=== PATIENT | female | born 1980 | race Caucasian/White ===

== ENCOUNTER 2016-12-30 13:51 | Emergency (ER) | payer OTHER ==
[~2016-12-30] VITALS: Ht 172.7 cm; Wt 97.5 kg
--- NOTE | 2016-12-30 15:05 | ED PSYCHIATRIC COMPLAINT ---
History of Present Illness General Chief Complaint: ETOH/Drug Related Complaint Stated Complaint: REQUESTING DETOX Source: patient, family (MOTHER), old records Exam Limitations: no limitations Vital Signs & Intake/Output Vital Signs & Intake/Output Vital Signs Date Time Temp Pulse Resp B/P B/P Pulse O2 O2 Flow FiO2 Mean Ox Delivery Rate 12/30 1647 70 18 121/67 98 Room Air 12/30 1410 96.4 72 18 119/75 99 Room Air Allergies Coded Allergies: cefuroxime (From CEFTIN) (Intermediate, RASH 12/30/16) Reconcile Medications Clonidine HCl (Kapvay) 0.1 MG TAB.ER.12H 1 TAB PO TID PRN DETOX Ondansetron (Zofran Odt) 4 MG TAB.RAPDIS 1 TAB SL TID PRN NAUSEA Triage Note: 36 Y/O FEMALE COME IN FOR DETOX OF VICODIN AND VALIUM. PT STS SHE HAD MADE PLANS TO GO TO A DETOX CENTER IN [facility] AND WHEN SHE GOT THERE SHE WAS INFORMED DURING TRIAGE THAT SHE WILL NEED A MEDICAL DETOX. PT STS HAS DETOX IN PAST ABOUT 10-15 YRS AGO. LAST DOSE OF VICODIN AND VALIUM WAS THIS MORNING. VICODIN 6 TABS OF 7.5 AND 80-100 MG OF THE VALIUM. PT STS SHE USUALLY TAKES A TOTAL OF UPTO 15--25 TABS OF THE VICODIN AND 80-100 MG OF THE VALIUM A DAY. PT DENIES SI/HI AT PRESENT AND STS SHE HAS A ORTIZ, NAUSEA AND SWEATY AT PRESENT. PT STS SHE ALSO DOES TAKE KLONOPIN 2MG TAB AOUT 5-10 A DAY AND OCCASSIOPNAL MARIJUANA USE. LAST USE ABOUT 5 DAYS AGO. PT STS SHE ALSO SOCIALLY SMOKES AND LAST USE WAS 3 DAYS AGO AND DOES NOT REQUIRE A NICOTINE PATCH AT PRESENT. PT AWAITING PROVIDER EVAL Triage Nurses Notes Reviewed? yes Onset: Gradual Duration: constant, X YEARS Timing: recent history Severity: moderate Severity Numbers: 10 Associated Symptoms: DENIES : No Patient currently breastfeeds: No HPI: 36-year-old female with history of chronic back pain for which she is been on pain medication presents to the ER with her mother for evaluation requesting admission for opiate and benzo detox. The patient states that she has been on Vicodin and Valium for the past several years her last dose of these medications was morning. She states that she has been taking between 6 and 7 tablets of Vicodin a day and 80-100 mg worth of Valium a day. She states that she went to the [facility] today after she had been improved however when she got there was told that she needed to be medically detoxed in a hospital setting. The patient denies depression anxiety or suicidal or homicidal ideation. She smokes marijuana socially she denies any other drug or alcohol use. The patient states that since this morning she has been feeling shaky and nauseous no fever no chills no chest pain or abdominal pain. Symptoms are moderate constant no modifying factors or associated symptoms otherwise (NIKUNJ RENDON) Past History Travel History Traveled to [facility] past 21 day No Medical History Any Pertinent Medical History? see below for history Neurological: NONE EENT: NONE Cardiovascular: SINUS TACHYCARDIA Respiratory: NONE Gastrointestinal: CONSATIPATION Hepatic: NONE Renal: NONE Musculoskeletal: disk herniation, LAMINECTOMY FUSION OF LUMBAR SPINE Psychiatric: depression, PCOS PTSD Endocrine: NONE Blood Disorders: NONE Surgical History Surgical History: LUMBAR FUSION Psychosocial History What is your primary language Kazakh Tobacco Use: Current Not Daily Daily Tobacco Use Amount/Type: =< 4 Cigarettes daily ETOH Use: occasional use Illicit Drug Use: marijuana, benzodiazepines Family History Hx Contributory? No (NIKUNJ RENDON) Review of Systems Review of Systems Constitutional: Reports: see HPI. All Other Systems: Reviewed and Negative Comments Review of systems: See HPI, All other systems negative. Constitutional, no chills no fever, no malaise HEENT: no sore throat no congestion, no ear pain Cardiovascular: No chest pain , no palpitation Skin: no rashes, no change in skin Respiratory: No dyspnea no cough no sputum no hemoptysis GI: No nausea no vomiting, no diarrhea, : No dysuria Muscle skeletal: No joint pain, no joint swelling, back pain, no neck pain, Neurologic: No numbness no headache Psych: No stress no depression,. Heme/endocrine: No bruising Immunology: No lymphadenopathy (NIKUNJ RENDON) Physical Exam Physical Exam General Appearance: well developed/nourished, no apparent distress, alert, awake Neurological/Psychiatric: no motor/sensory deficits, awake, alert, calm, lab[employer] II- XII nml as tested Comments: Well-developed well-nourished person in no acute distress HEENT: Normal EENT exam; PERRL, EOMI,. HEAD is atraumatic. moist mucous membranes. Neck: Supple, no lymphadenopathy, normal range of motion Back: Nontender, no CVA tenderness. Full range of motion Cardiovascular: Regular rate and rhythms no murmurs rubs Respiratory: No respiratory distress. Patient speaking in full complete sentences. Breath sounds clear to auscultation bilaterally: NO W/R/R Abdomen: Soft, nontender nondistended, Extremity: No edema, full range of motion of extremities Neuro: Alert oriented x3, motor sensory normal There were no obvious focal neurologic abnormalities. Skin: No appreciable rash on exposed skin, skin is warm and dry. Psych: Mood and affect is normal, memory and judgment is normal. SAD PERSONS Done? patient not suicidal (NIKI POPE,NIKUNJ) Progress Differential Diagnosis: drug overdose, drug withdrawal, electrolyte abnormality, tYLENOL POISONING ELECTROLYTE ABNORMALITY DEPRESSION ANXIETY Plan of Care: Orders Procedure Date/time Status URINE DRUG SCREEN FOR ER ONLY 12/30 1506 Complete ACETOMINOPHEN 12/30 1505 Complete SALICYLATE 12/30 1505 Complete LIPASE 12/30 1505 Complete COMPREHENSIVE METABOLIC PANEL 12/30 1505 Complete CBC WITHOUT DIFFERENTIAL 12/30 1505 Complete AMYLASE 12/30 1505 Complete Laboratory Tests 12/30/16 1606: Urine Opiates Screen > 4000.00 H, Methadone Screen 62, Barbiturate Screen < 60, Ur Phencyclidine Scrn < 6.00, Amphetamines Screen < 100, U Benzodiazepines Scrn > 800 H, Urine Cocaine Screen < 50, Urine Cannabis Screen < 5.00 12/30/16 1530: Anion Gap 12, Estimated GFR > 60, BUN/Creatinine Ratio 21.7, Glucose 100 H, Calcium 9.2, Total Bilirubin 0.3, AST 38 H, ALT 41, Alkaline Phosphatase 68, Total Protein 6.7, Albumin 4.0, Globulin 2.7, Albumin/Globulin Ratio 1.5, Amylase 35, Lipase 94, CBC w Diff NO MAN DIFF REQ, RBC 4.07 L, MCV 85.1, MCH 27.6, RDW 16.5 H, MPV 8.3, Gran % 64.9, Lymphocytes % 24.8, Monocytes % 6.9, Eosinophils % 2.8, Basophils % 0.6, Absolute Granulocytes 5.9, Absolute Lymphocytes 2.2, Absolute Monocytes 0.6, Absolute Eosinophils 0.2, Absolute Basophils 0.1, PUBS MCHC 32.5 L, Salicylates < 1.0, Acetaminophen < 10.0 L Labs ordered old records reviewed case discussed with Dr. Wadsworth Patient is awake, cooperative at this time she is declining admission to speak with crisis after multiple times for made for the patient to do so she is not suicidal. I attempted twice to call Dr. MARVIN and left a voicemail on both occasions at the [facility] where the patient was attempting to be admitted to today. I have not received a call back the patient and her mother were educated and informed that she does not meet criteria for admission to this hospital, the patient will be sent home with clonidine and Zofran she's had no episodes of vomiting here resting, we on stretcher no apparent distress. Discussed the patient the arms and risks of opiate abuse benzo abuse, as well as risks including Tylenol poisoning secondary to the Vicodin she has been taken (NIKUNJ RENDON) Departure Departure Time of Disposition: 1707 Disposition: HOME OR SELF CARE Condition: Stable Clinical Impression Primary Impression: Opiate abuse, continuous Referrals: ANGELA SCHWARTZ,GEOVANI Mccloud (PCP/Family) Additional Instructions: CLONIDINE AND ZOFRAN DIRECTED. THESE WERE SENT TO [facility]. FOLLOW UP WITH OUTPATIENT PROGRAMS PROVIDED IN YOUR PAPERWORK. RETURN WITH ANY CONCERNS Departure Forms: Customer Survey General Discharge Information Prescriptions: Current Visit Scripts Clonidine HCl (Kapvay) 1 TAB PO TID PRN DETOX #21 TAB Ondansetron (Zofran Odt) 1 TAB SL TID PRN NAUSEA #10 TAB (NIKUNJ RENDON) PA/CAMPUS POLICE OFFICER Co-Sign Statement Statement: ED Attending supervision documentation- [] I saw and evaluated the patient. I have also reviewed all the pertinent lab results and diagnostic results. I agree with the findings and the plan of care as documented in the PA's/CAMPUS POLICE OFFICER's documentation. [X] I have reviewed the ED Record and agree with the PA's/CAMPUS POLICE OFFICER's documentation. [] Additions or exceptions (if any) to the PAs/CAMPUS POLICE OFFICER's note and plan are summarized below: [] (LEANDRA SCHWARTZ,MERCEDES)
[2016-12-30 15:40] LABS: ABSOLUTE BASOPHIL COUNT 0.1 /CUMM (0.0-0.2); ABSOLUTE EOSINOPHIL COUNT 0.2 /CUMM (0.0-0.7); ABSOLUTE GRANULOCYTE CT 5.9 /CUMM (1.4-6.5); ABSOLUTE LYMPH COUNT 2.2 /CUMM (1.2-3.4); ABSOLUTE MONOCYTE COUNT 0.6 /CUMM (0.10-0.60); BASOPHIL % 0.6 % (0.0-2.0); EOSINOPHIL % 2.8 % (0-5); GRANULOCYTE % 64.9 % (42.2-75.2); HEMATOCRIT 34.6 % (37-47); MEAN CORPUSCULAR HGB 27.6 PG (27.0-31.0); MEAN CORPUSCULAR HGB CONC 32.5 G/DL (33.0-37.0); MEAN CORPUSCULAR VOLUME 85.1 FL (81.0-99.0); MEAN PLATELET VOLUME 8.3 FL (7.4-10.4); PLATELET COUNT 256 /CUMM (130-400); RBC DISTRIBUTION WIDTH 16.5 % (11.5-14.5); RED BLOOD CELL CT 4.07 /CUMM (4.20-5.40)
[2016-12-30 16:47] VITALS: BP 121/67
[2016-12-30] MEDS ORDERED: ZOFRAN ODT4 M1 SL (17:10)
[2016-12-30] MEDS ORDERED: KAPVAY0.1 M1 PO (17:10)
== END 2016-12-30 17:37 ==
LOC: ERH 13:51
PROVIDERS: Physician Assistant Medical
DX: F11.10 Opioid abuse, uncomplicated (principal)
CPT/HCPCS: 80307; G0480